=== PATIENT | female | born 1965 | race Caucasian/White ===

== ENCOUNTER 2018-09-20 13:33 | Emergency (ER) | payer OTHER ==
[~2018-09-20 13:33] MED LIST: Sodium Chloride 0.9% 1,000 ML BAG ONE; Sodium Chloride 0.9% 100 ML BAG ONE
[2018-09-20] MEDS ORDERED: Ondansetron PF 4 MG/2 ML Vial ONE (14:25)
[2018-09-20 14:57] LABS: Bilirubin Large (Negative); Blood, Urine Large (Negative); Clarity Cloudy (Clear); Glucose, Urine (Dipstick) >=1000 mg/dL (Negative); Leukocyte Negative (Negative); Nitrite Negative (Negative); Protein, Urine (Dipstick) 100 mg/dL (Neg-Trace); Specific Gravity, Urine 1.025 (1.005-1.030); Urobilinogen 0.2 mg/dL (0.2-1.0)
[2018-09-20 15:05] LABS: ALT (SGPT) 22 U/L (8-55); AST (SGOT) 12 U/L (5-34); Albumin 4.7 g/dL (3.5-5.0); Alkaline Phosphatase 184 U/L (40-150); Anion Gap 28 mmol/L (10-20); BUN (Urea Nitrogen) 45 mg/dL (9.8-20.1); Bilirubin, Total 0.9 mg/dL (0.2-1.2); Calc. Creatinine Clearance 0 mL/min (70-130); Calcium 9.5 mg/dL (7.8-10.44); Carbon Dioxide 27 mmol/L (22-29); Chloride 78 mmol/L (98-107); Estimated GFR-MDRD 18; Globulin 3.6 g/dL (2.4-3.5); Lipase 14 U/L (8-78); Potassium 3.6 mmol/L (3.5-5.1); Protein, Total 8.3 g/dL (6.0-8.3); Sodium 129 mmol/L (136-145)
[2018-09-20] MEDS ORDERED: Insulin Regular 300 UNITS/3 ML VIAL ONE (15:18)
[2018-09-20 15:19] LABS: Band 10 % (5-11); Hemoglobin 16.4 g/dL (12.0-16.0); Lymphocytes 10 % (21-51); MDiff Complete? YES; Mean Corpuscular HGB CONC 31.9 g/dL (32.0-36.0); Mean Corpuscular Hemoglobin 26.8 pg (27.0-31.0); Mean Corpuscular Volume 83.9 fL (78.0-98.0); Mean Platelet Volume 7.1 fL (7.4-10.4); Monocytes 8 % (0-10); Neutrophil 72 % (42-75); Platelet Count 334 thou/uL (130-400); Platelet Morphology Comment Appears Adequate; RBC Distribution Width 13.8 % (11.5-14.5); Red Blood Cell (RBC) Count 6.12 mill/uL (4.20-5.40); White Blood Cell (WBC) Count 25.1 thou/uL (4.8-10.8)
[2018-09-20 15:21] LABS: Base Excess-Venous 7.3 mmol/L (-2.0 to 3.0); Bicarbonate (HCO3v) 30.9 mmol/L (22.0-28.0); CO2 Tension (PvCO2) 38.4 mmHg (40.0-50.0); Calcium, Ionized 0.88 mmol/L (See Comments:); Chloride 84 mmol/L (98-107); Hemoglobin - Calc 20.5 g/dL (12.0-16.0); Potassium 3.2 mmol/L (3.5-5.1); Sodium 124 mmol/L (138-145); vO2 Saturation-calc 99.8 % (60.0-85.0)
[2018-09-20 15:24] LABS: Bacteria/HPF 4+ HPF (None Seen); WBC/HPF 0-3 HPF (0-3)
[2018-09-20 15:25] LABS: CKMB 2.4 ng/mL (0-6.6)
[2018-09-20 15:26] LABS: Glucose 718 mg/dL (70-105)
[2018-09-20 15:32] LABS: Acetaminophen Less than 6.0 mcg/mL (10.0-30.0); Alcohol Less than 10 mg/dL (Less than 10); Salicylate Less than 8.0 mg/dL (15.0-30.0)
--- NOTE | 2018-09-20 15:42 | RAD ---
AP view chest. HISTORY: Nausea and vomiting. AP view chest is obtained. Cardiomegaly noted. Pulmonary vascular congestion seen. No evidence of eff usions, pneumonia or pneumothorax seen. IMPRESSION: cardiomegaly.
[2018-09-20] MEDS ORDERED: Piperacillin/Tazobactam 4.5 GM VIAL ONE (15:44)
[2018-09-20] MEDS ORDERED: Aspirin 325 MG TAB ONE (16:39)
== END 2018-09-20 16:50 | disposition short-term general hospital (02) ==
LOC: MADERS 13:33
DX: A41.9 Sepsis, unspecified organism (principal); E11.65 Type 2 diabetes mellitus with hyperglycemia; N17.9 Acute kidney failure, unspecified; E87.3 Alkalosis; E86.0 Dehydration; R79.89 Other specified abnormal findings of blood chemistry; I10 Essential (primary) hypertension
CPT/HCPCS: 36415; 36416; 71045; 80053; 80307; 81003; 81015; 82330; 82553; 82803; 83605; 83690; 84484; 85025; 87040; 93005; 94760; 96365; 96375; J1815; J2405; J2543; J3490; J7050

== ENCOUNTER 2020-06-24 17:27 | Emergency (ER) | payer OTHER ==
[2020-06-24] MEDS ORDERED: Sodium Chloride 0.9% 1,000 ML ONE (18:14)
[2020-06-24] MEDS ORDERED: Loperamide HCl 2 MG CAP ONE (18:14)
[2020-06-24] MEDS ORDERED: Ondansetron PF 4 MG/2 ML Vial ONE (18:14)
[2020-06-24 18:23] LABS: #Basophils 0.1 thou/uL (0.0-0.2); #Lymphocytes 2.8 thou/uL (1.20-3.40); #Monocytes 1.1 thou/uL (0.11-0.59); #Neutrophils 7.7 thou/uL (1.40-6.50); %Basophils 0.7 % (0.0-1.0); %Lymphocytes 24.3 % (21.0-51.0); Hemoglobin 12.9 g/dL (12.0-16.0); Mean Corpuscular HGB CONC 31.5 g/dL (32.0-36.0); Mean Corpuscular Hemoglobin 27.8 pg (27.0-31.0); Mean Corpuscular Volume 88.2 fL (78.0-98.0); Mean Platelet Volume 6.2 fL (7.4-10.4); Platelet Count 298 thou/uL (130-400); RBC Distribution Width 14.1 % (11.5-14.5); Red Blood Cell (RBC) Count 4.64 mill/uL (4.20-5.40); White Blood Cell (WBC) Count 11.7 thou/uL (4.8-10.8)
[2020-06-24 18:47] LABS: Bilirubin Negative (Negative); Blood, Urine Small (Negative); Clarity Cloudy (Clear); Glucose, Urine (Dipstick) 250 mg/dL (Negative); Ketone, Urine Negative (Negative); Leukocyte Trace (Negative); Nitrite Negative (Negative); Protein, Urine (Dipstick) 100 mg/dL (Neg-Trace); Urobilinogen 0.2 mg/dL (Less than 2); pH, Urine 5.5 (5.0-9.0)
[2020-06-24 18:54] LABS: Bacteria/HPF 3+ HPF (None Seen); Mucous/LPF 1+ LPF (<2+); WBC/HPF Greater Than 50 HPF (0-3)
[2020-06-24 19:03] LABS: ALT (SGPT) 21 U/L (8-55); AST (SGOT) 10 U/L (5-34); Albumin 3.8 g/dL (3.5-5.0); Alkaline Phosphatase 126 U/L (40-110); Anion Gap 18 mmol/L (10-20); BUN (Urea Nitrogen) 15 mg/dL (9.8-20.1); Bilirubin, Total 0.4 mg/dL (0.2-1.2); Calc. Creatinine Clearance 0 mL/min (70-130); Calcium 9.2 mg/dL (7.8-10.44); Carbon Dioxide 23 mmol/L (22-29); Chloride 104 mmol/L (98-107); Globulin 3.7 g/dL (2.4-3.5); Glucose 283 mg/dL (70-105); Lipase 10 U/L (8-78); Potassium 4.2 mmol/L (3.5-5.1); Protein, Total 7.5 g/dL (6.0-8.3); Sodium 141 mmol/L (136-145)
== END 2020-06-24 20:02 | disposition home or self-care (01) ==
LOC: MADERS 17:27
DX: E86.0 Dehydration (principal); R19.7 Diarrhea, unspecified; R11.2 Nausea with vomiting, unspecified; E11.9 Type 2 diabetes mellitus without complications; Z79.4 Long term (current) use of insulin; Z87.19 Personal history of other diseases of the digestive system
CPT/HCPCS: 80053; 81003; 81015; 83690; 85025; 87086; 93005; 96374; J2405; J7050

== ENCOUNTER 2021-05-06 05:56 | Emergency (ER) | payer OTHER ==
[2021-05-06] MEDS ORDERED: HYDROcodone/Acetaminophen 5/325 mg Tablet ONE (06:35)
[2021-05-06] MEDS ORDERED: Cephalexin 500 MG CAP ONE (06:36)
[2021-05-06] MEDS ORDERED: Doxycycline 100 MG CAP ONE (06:36)
== END 2021-05-06 06:53 | disposition home or self-care (01) ==
LOC: MADERS 05:56
DX: L02.416 Cutaneous abscess of left lower limb (principal); E11.9 Type 2 diabetes mellitus without complications; Z79.4 Long term (current) use of insulin
CPT/HCPCS: 10060; 87070; 87205

== ENCOUNTER 2021-05-08 06:13 | Emergency (ER) | payer OTHER | END 2021-05-08 06:45 | disposition home or self-care (01) | LOC: MADERS 06:13 | DX: E11.9 Type 2 diabetes mellitus without complications (principal); Z79.4 Long term (current) use of insulin; Z79.899 Other long term (current) drug therapy | CPT/HCPCS: 99282 ==

== ENCOUNTER 2021-09-09 13:28 | Emergency (ER) | payer OTHER ==
[2021-09-09 14:18] LABS: Hemoglobin 10.5 g/dL (12.0-16.0); Mean Corpuscular HGB CONC 32.1 g/dL (32.0-36.0); Mean Corpuscular Hemoglobin 27.7 pg (27.0-31.0); Mean Corpuscular Volume 86.3 fL (78.0-98.0); Mean Platelet Volume 8.7 fL (7.4-10.4); Platelet Count 309 thou/uL (130-400); RBC Distribution Width 14.6 % (11.5-14.5); Red Blood Cell (RBC) Count 3.79 mill/uL (4.20-5.40); White Blood Cell (WBC) Count 20.6 thou/uL (4.8-10.8)
[2021-09-09 14:25] LABS: Base Excess-Venous 0.1 mmol/L (-2.0 to 3.0); Bicarbonate (HCO3v) 26.1 mmol/L (22.0-28.0); Chloride 88 mmol/L (98-107); Potassium 4.5 mmol/L (3.5-5.1); Sodium 126 mmol/L (138-145); T. Carbon Dioxide 27.5 mmol/L (22.0-28.0); vO2 Saturation-calc 98.8 % (60.0-85.0)
[2021-09-09 14:36] LABS: Anisocytosis SLIGHT = 6-15 cells (100X) (0-5/hpf); Band 15 % (5-11); Lymphocytes 17 % (21-51); MDiff Complete? YES; Manual Diff?? YES; Monocytes 4 % (0-10); Neutrophil 64 % (42-75); Platelet Morphology Comment Appears Adequate
[2021-09-09 15:01] LABS: ALT (SGPT) 31 U/L (8-55); AST (SGOT) 30 U/L (5-34); Acetaminophen Less than 10.0 mcg/mL (10.0-30.0); Albumin 2.8 g/dL (3.5-5.0); Alcohol Less than 10 mg/dL (Less than 10); Alkaline Phosphatase 86 U/L (40-110); Anion Gap 25 mmol/L (10-20); BUN (Urea Nitrogen) 93 mg/dL (9.8-20.1); Bilirubin, Total 0.4 mg/dL (0.2-1.2); Calc. Creatinine Clearance 0 mL/min (70-130); Calcium 6.3 mg/dL (7.8-10.44); Carbon Dioxide 23 mmol/L (22-29); Chloride 89 mmol/L (98-107); Globulin 2.8 g/dL (2.4-3.5); Glucose 87 mg/dL (70-105); Lipase 6 U/L (8-78); Potassium 3.7 mmol/L (3.5-5.1); Protein, Total 5.6 g/dL (6.0-8.3); Salicylate Less than 8.0 mg/dL (15.0-30.0); Sodium 133 mmol/L (136-145)
[2021-09-09 15:02] LABS: BHCG - Serum Indeterminate (NEGATIVE); Pregs Control Background? CLEAR/WHITE (CLR/WHITE); Pregs Control Bar Appear? YES (CONTROL BAR)
[2021-09-09 15:11] LABS: Bilirubin Large (Negative); Blood, Urine Trace (Negative); Glucose, Urine (Dipstick) Negative (Negative); Ketone, Urine Trace mg/dL (Negative); Leukocyte Trace (Negative); Nitrite Negative (Negative); Protein, Urine (Dipstick) 100 mg/dL (Neg-Trace); Urobilinogen 0.2 mg/dL (Less than 2)
[2021-09-09 15:14] LABS: Clarity Hazy (Clear)
[2021-09-09 15:17] LABS: Thyroid Stimulating Hormone 0.9536 uIU/mL (0.35-4.94)
[2021-09-09] MEDS ORDERED: Cefepime 2 GM VIAL ONE (15:19)
[2021-09-09] MEDS ORDERED: Sodium Chloride 0.9% 100 ML ONE (15:19)
[2021-09-09 15:21] LABS: Bacteria/HPF 1+ HPF (None Seen); Pregnancy Test - Urine (BHCG) Negative (Negative); Pregu Control Background? CLEAR/WHITE (CLR/WHITE); Pregu Control Bar Appear? YES (CONTROL BAR); RBC/HPF 0-3 HPF (0-3)
[2021-09-09 15:22] LABS: Mucous/LPF 1+ LPF (<2+)
[2021-09-09 15:23] LABS: Amphetamine Not Detected (NotDetected); Barbiturates Screen Not Detected (NotDetected); Benzodiazepine Screen Detected (NotDetected); Cocaine Metabolite Screen Not Detected (NotDetected); Medtox Control Line Valid? VALID (VALID); Methadone Not Detected (NotDetected); Methamphetamine Not Detected (NotDetected); Opiate Screen Not Detected (NotDetected); Oxycodone Screen Not Detected (NotDetected); Phencyclidine (PCP) Not Detected (NotDetected); THC/Cannabinoid Screen Not Detected (NotDetected); Tricyclic Screen Not Detected (NotDetected)
[2021-09-09] MEDS ORDERED: Sodium Chloride 0.9% 500 ML ONE (15:53)
[2021-09-09] MEDS ORDERED: Sodium Chloride 0.9% 1,000 ML ONE (15:53)
== END 2021-09-09 16:30 | disposition short-term general hospital (02) ==
LOC: MADERS 13:28
DX: E86.0 Dehydration (principal); N19 Unspecified kidney failure; D64.9 Anemia, unspecified; D72.829 Elevated white blood cell count, unspecified; N39.0 Urinary tract infection, site not specified; Z89.512 Acquired absence of left leg below knee
CPT/HCPCS: 51702; 70450; 71045; 80053; 80306; 80307; 81003; 81015; 81025; 82010; 82140; 82330; 82803; 83605; 83690; 84443; 84484; 84703; 85025; 93005; 96365; 96367; J0692; J3370; J3490; J7030; J7050

== ENCOUNTER 2021-10-21 20:09 | Emergency (ER) | payer OTHER ==
[2021-10-21] MEDS ORDERED: Cephalexin 250 MG CAP ONE (21:47)
== END 2021-10-21 21:50 | disposition home or self-care (01) ==
LOC: MADERS 20:09
DX: E11.621 Type 2 diabetes mellitus with foot ulcer (principal); L97.518 Non-pressure chronic ulcer of other part of right foot with other specified severity; L03.031 Cellulitis of right toe; E11.22 Type 2 diabetes mellitus with diabetic chronic kidney disease; N18.9 Chronic kidney disease, unspecified; W18.2XXA Fall in (into) shower or empty bathtub, initial encounter; Y92.239 Unspecified place in hospital as the place of occurrence of the external cause; Z79.4 Long term (current) use of insulin; Z79.899 Other long term (current) drug therapy

== ENCOUNTER 2023-11-15 11:44 | Emergency (ER) | payer OTHER ==
[2023-11-15] MEDS ORDERED: HYDROcodone/Acetaminophen 5/325 mg Tablet ONE (13:26)
== END 2023-11-15 13:53 | disposition home or self-care (01) ==
LOC: MADERS 11:44
DX: S83.92XA Sprain of unspecified site of left knee, initial encounter (principal); G57.92 Unspecified mononeuropathy of left lower limb; E11.9 Type 2 diabetes mellitus without complications; Z89.512 Acquired absence of left leg below knee; W19.XXXA Unspecified fall, initial encounter
CPT/HCPCS: 72100

== ENCOUNTER 2023-11-15 14:10 | Outpatient (CLI) | payer OTHER | END 2023-11-15 14:11 | disposition home or self-care (01) | LOC: MADRAD 14:10 | DX: S22.089A Unspecified fracture of T11-T12 vertebra, initial encounter for closed fracture (principal); S32.029A Unspecified fracture of second lumbar vertebra, initial encounter for closed fracture; M43.8X4 Other specified deforming dorsopathies, thoracic region; M43.8X6 Other specified deforming dorsopathies, lumbar region | CPT/HCPCS: 72100 ==

== ENCOUNTER 2023-12-13 11:27 | Outpatient (CLI) | payer OTHER | END 2023-12-13 11:28 | disposition home or self-care (01) | LOC: MADLAB 11:27 | PROVIDERS: ATTEND Neurological Surgery | DX: S32.029A Unspecified fracture of second lumbar vertebra, initial encounter for closed fracture (principal); S22.089A Unspecified fracture of T11-T12 vertebra, initial encounter for closed fracture | CPT/HCPCS: 72100 ==

== ENCOUNTER 2024-01-24 11:37 | Outpatient (CLI) | payer OTHER | END 2024-01-24 11:38 | disposition home or self-care (01) | LOC: MADRAD 11:37 | PROVIDERS: ATTEND Surgery | DX: S22.061A Stable burst fracture of T7-T8 vertebra, initial encounter for closed fracture (principal); S32.021A Stable burst fracture of second lumbar vertebra, initial encounter for closed fracture; M43.8X4 Other specified deforming dorsopathies, thoracic region | CPT/HCPCS: 72070 ==